=== PATIENT | female | born 1995 | race Caucasian/White ===

== ENCOUNTER 2019-12-07 17:28 | Observation (INO) | payer OTHER ==
[2019-12-07 18:39] VITALS: O2SAT 97
[2019-12-07 19:17] LABS: Amphetamine,Urine NEGATIVE (NEGATIVE); Barbiturate,Urine NEGATIVE (NEGATIVE); Benzodiazepine,Urine NEGATIVE (NEGATIVE); Cocaine,Urine NEGATIVE (NEGATIVE); Methadone,Urine NEGATIVE (NEGATIVE); Opiate,Urine NEGATIVE (NEGATIVE); PCP,Urine NEGATIVE (NEGATIVE); THC,Urine NEGATIVE (NEGATIVE)
[2019-12-07 19:59] LABS: Amourphous Crystal FEW /HPF (NEGATIVE); Appearance SLIGHTLY CLOUDY (CLEAR); Bacteria FEW /HPF (NEGATIVE); Bilirubin NEGATIVE (NEGATIVE); Blood NEGATIVE Ery/ul (0-5); Epithelial Cells RARE /HPF (FEW); Glucose 50 mg/dL (NEGATIVE); Ketones NEGATIVE (NEGATIVE); Leukocyte Esterase TRACE (NEGATIVE); Mucus SLIGHT /HPF (NEGATIVE); Nitrite NEGATIVE (NEGATIVE); Protein,Urine Dip NEGATIVE (Negative); RBC 0-2 /HPF (0-2); Specific Gravity 1.021 (1.005-1.025); Urobilinogen NEGATIVE mg/dL (0-1)
[2019-12-07] MEDS ORDERED: Lactated Ringers 500 ML IV ONE ×2 (20:38→20:41)
[2019-12-07 22:29] VITALS: BP 127/79; PULSE 100
== END 2019-12-07 22:30 | disposition home or self-care (01) ==
LOC: OB 17:28
PROVIDERS: ADMIT Family Medicine; ATTEND Family Medicine
DX: Z34.83 Encounter for supervision of other normal pregnancy, third trimester (principal)
CPT/HCPCS: 80307; 81001; G0378

== ENCOUNTER 2019-12-13 12:35 | Observation (INO) | payer OTHER ==
[2019-12-13] MEDS ORDERED: PITOCIN 30 UNITS/ LR 500 ML 30 UNITS/500 ML IV.SOLN. IV SCH (16:30)
[2019-12-13] MEDS ORDERED: XYLOCAINE 1% HCL 20 ML MDV IJ PRN (20:00)
[2019-12-13] MEDS ORDERED: TYLENOL EXTRA STRENGTH 500 MG PO PRN (20:00)
[2019-12-13] MEDS ORDERED: Zofran 4 MG/2 ML VIAL IV PRN (20:00)
[2019-12-13] MEDS ORDERED: Phenergan 25 MG INJ IV PRN (20:00)
[2019-12-13] MEDS ORDERED: Lactated Ringers 1,000 ML IV SCH (20:30)
[2019-12-13 21:06] LABS: Absolute Neutrophil Ct (ANC) 9.26 (1.4-6.9); BASOPHIL % 0.2 % (0.0-0.4); Basophil (Absolute #) 0.02 (0-0.4); Eosinophil % 0.8 % (0.00-5.0); Eosinophil (Absolute #) 0.11 (0-0.5); Hematocrit 30.8 % (35-47); Hemoglobin 10.1 gm/dl (12.0-16.0); Lymphocyte (Absolute #) 2.79 (1.0-4.6); Lymphocytes % 21.3 % (24.0-44.0); Mean Cell Volume 90.3 fl (78-100); Mean Corpuscular Hemoglobin 29.6 pg (26-32); Mean Corpuscular Hgb Concent. 32.8 g/dl (32-36); Mean Platelet Volume 10.4 fl (7.5-11.0); Monocyte (Absolute #) 0.92 (0.0-1.3); Neutrophil % 70.7 % (36.0-66.0); Platelet Count 277 K/mm3 (150-450); Red Blood Count 3.41 M/mm3 (4.1-5.4); Red Cell Distribution Width 13.8 % (11.5-14.0); White Blood Count 13.1 K/mm3 (4.0-10.5)
[2019-12-13 21:23] LABS: Amphetamine,Urine NEGATIVE (NEGATIVE); Barbiturate,Urine NEGATIVE (NEGATIVE); Benzodiazepine,Urine NEGATIVE (NEGATIVE); Cocaine,Urine NEGATIVE (NEGATIVE); Methadone,Urine NEGATIVE (NEGATIVE); Opiate,Urine NEGATIVE (NEGATIVE); PCP,Urine NEGATIVE (NEGATIVE); THC,Urine NEGATIVE (NEGATIVE)
[2019-12-13] MEDS ORDERED: Pepcid 20 MG PO SCH (22:00)
[2019-12-14] MEDS ORDERED: Lactated Ringers 1,000 ML IV ONE ×2 (00:27→04:32)
[2019-12-14 04:55] VITALS: O2SAT 95
[2019-12-14] MEDS ORDERED: PITOCIN 30 UNITS/ LR 500 ML 500 ML IV SCH (06:00)
[2019-12-14 11:18] VITALS: BP 120/73; PULSE 95
== END 2019-12-14 11:27 | disposition home or self-care (01) ==
LOC: OB 20:04 → UNDOADMOB 20:04 → UNDODISOB 12-14 11:27
PROVIDERS: ADMIT Family Medicine; ATTEND Family Medicine
DX: Z34.83 Encounter for supervision of other normal pregnancy, third trimester (principal)
CPT/HCPCS: 36415; 80307; 85025; G0378; A9270-GY

== ENCOUNTER 2019-12-15 13:12 | Inpatient (IN) | payer OTHER ==
[2019-12-15] MEDS ORDERED: PITOCIN 30 UNITS/ LR 500 ML 30 UNITS/500 ML IV.SOLN. IV SCH (17:00)
[2019-12-15] MEDS ORDERED: XYLOCAINE 1% HCL 20 ML MDV IJ PRN (17:00)
[2019-12-15] MEDS ORDERED: BRETHINE 1 MG/ML SQ PRN (17:00)
[2019-12-15] MEDS ORDERED: Zofran 4 MG/2 ML VIAL IV PRN (19:57)
[2019-12-15] MEDS ORDERED: TYLENOL EXTRA STRENGTH 500 MG PO PRN (19:57)
[2019-12-15 21:05] LABS: Amphetamine,Urine NEGATIVE (NEGATIVE); Barbiturate,Urine NEGATIVE (NEGATIVE); Benzodiazepine,Urine NEGATIVE (NEGATIVE); Cocaine,Urine NEGATIVE (NEGATIVE); Methadone,Urine NEGATIVE (NEGATIVE); Opiate,Urine NEGATIVE (NEGATIVE); PCP,Urine NEGATIVE (NEGATIVE); THC,Urine NEGATIVE (NEGATIVE)
[2019-12-15] MEDS: Lactated Ringers 1,000 ML IV SCH (21:07)
[2019-12-15 21:10] LABS: Hematocrit 31.1 % (35-47); Hemoglobin 10.2 gm/dl (12.0-16.0); Mean Cell Volume 90.7 fl (78-100); Mean Corpuscular Hemoglobin 29.7 pg (26-32); Mean Corpuscular Hgb Concent. 32.8 g/dl (32-36); Mean Platelet Volume 10.5 fl (7.5-11.0); Platelet Count 274 K/mm3 (150-450); Red Blood Count 3.43 M/mm3 (4.1-5.4); Red Cell Distribution Width 13.8 % (11.5-14.0)
[2019-12-15] MEDS: CYTOTEC PO SCH ×2 (21:29→23:32)
[2019-12-16 01:23] LABS: Eosinophil 2 % (0.00-3.0); Lymphocytes 22 % (24-44); Monocyte 5 % (0.0-12.0); Neutrophils 71 % (36.0-66.0); Platelet Estimate NORMAL (NORMAL); Total Cells Counted 100
[2019-12-16] MEDS: CYTOTEC PO SCH ×5 (01:32→09:51)
[2019-12-16] MEDS: Lactated Ringers 1,000 ML IV SCH ×3 (12:02→20:06)
[2019-12-16] MEDS ORDERED: OB EPIDURAL NAROPIN/SUFENTANIL IN NACL EPIDURAL PRN (13:16)
[2019-12-16] MEDS ORDERED: Lactated Ringers 1,000 ML IV ONE (13:16)
[2019-12-16] MEDS ORDERED: Ephedrine Sulfate 50 MG/ML IV PRN (13:16)
[2019-12-16] MEDS ORDERED: BENADRYL 50 MG/ML IV ONE (20:54)
[2019-12-16] MEDS ORDERED: TYLENOL EXTRA STRENGTH 500 MG PO PRN (21:00)
[2019-12-16] MEDS ORDERED: Dermoplast Spray TP PRN (21:00)
[2019-12-16] MEDS ORDERED: CORTISONE 1% CREAM TP PRN (21:00)
[2019-12-16] MEDS ORDERED: Mylicon 80MG PO PRN (21:00)
[2019-12-16] MEDS ORDERED: NORCO 5/325 MG PO PRN (21:00)
[2019-12-16] MEDS ORDERED: TUCKS TP PRN (21:00)
[2019-12-16] MEDS ORDERED: Dulcolax 10 MG SUPP PR PRN (21:00)
[2019-12-16] MEDS ORDERED: LANSINOH 40 GM TOP PRN (21:00)
[2019-12-16] MEDS: Colace 100 MG PO SCH (22:00)
[2019-12-16 23:35] LABS: ABO TYPING A; ANTIBODY SCREEN NEGATIVE (NEGATIVE); RH TYPING NEGATIVE
[2019-12-17 00:06] VITALS: O2SAT 100
[2019-12-17 05:23] LABS: Absolute Neutrophil Ct (ANC) 10.19 (1.4-6.9); BASOPHIL % 0.1 % (0.0-0.4); Basophil (Absolute #) 0.01 (0-0.4); Eosinophil % 0.6 % (0.00-5.0); Eosinophil (Absolute #) 0.09 (0-0.5); Hematocrit 29.3 % (35-47); Hemoglobin 9.4 gm/dl (12.0-16.0); Lymphocyte (Absolute #) 2.61 (1.0-4.6); Lymphocytes % 18.6 % (24.0-44.0); Mean Cell Volume 91.6 fl (78-100); Mean Corpuscular Hemoglobin 29.4 pg (26-32); Mean Corpuscular Hgb Concent. 32.1 g/dl (32-36); Mean Platelet Volume 10.8 fl (7.5-11.0); Monocyte (Absolute #) 1.12 (0.0-1.3); Neutrophil % 72.7 % (36.0-66.0); Platelet Count 231 K/mm3 (150-450); Red Cell Distribution Width 13.7 % (11.5-14.0)
[2019-12-17] MEDS ORDERED: Rhogam Plus 300 MCG IM ONE (08:00)
[2019-12-17] MEDS: MOTRIN 400 MG PO PRN ×2 (09:17→17:01)
[2019-12-17] MEDS: FERREX 150 PO SCH (09:18)
[2019-12-17] MEDS: Colace 100 MG PO SCH ×2 (09:19→22:07)
[2019-12-18 09:03] VITALS: BP 105/71; PULSE 90
[2019-12-18] MEDS: FERREX 150 PO SCH (12:14)
[2019-12-18] MEDS: Colace 100 MG PO SCH (12:14)
== END 2019-12-18 13:50 | disposition home or self-care (01) | DRG 807 ==
LOC: OB 20:10 → OBSVTOIN 12-16 12:11
PROVIDERS: ADMIT Family Medicine; ATTEND Family Medicine
PROC: 10E0XZZ Delivery of Products of Conception, External Approach (ICD-10-PCS; principal; 2019-12-16)
PROC: 0HQ9XZZ Repair Perineum Skin, External Approach (ICD-10-PCS; 2019-12-16)
DX: O70.0 First degree perineal laceration during delivery (principal); Z37.0 Single live birth; Z3A.39 39 weeks gestation of pregnancy
CPT/HCPCS: 36415; 80307; 85025; 85461; 86850; 86900; 86901; 87340; 96372; G0378; J1200; J2590; J2790; A9270-GY